=== PATIENT | male | born 1990 | race Caucasian/White ===

== ENCOUNTER 2016-07-12 21:44 | Emergency (ER) | payer BC ==
[~2016-07-12] VITALS: Ht 190.5 cm; Wt 77.1 kg
[2016-07-12] MEDS ORDERED: LORazepam Inj 2mg/ml 1ml IV ONE (22:45)
[2016-07-12] MEDS ORDERED: Tubing IV Cassette IV ONE (22:47)
[2016-07-13] VITALS: BP 135/85
--- NOTE | 2016-07-13 00:21 | Emergency Room Report ---
History of Present Illness General Chief Complaint: Substance Abuse Source: Patient, EMS Present Illness HPI Patient presents after adverse reaction from methamphetamine Patient reports that he used amphetamines in the afternoon he had done okay with this however he did a IV injection just prior to arrival He felt that the powder did not look right And soon after ingestion he had a reaction of tingling and numbness in his lower extremity Patient fell palpitations At this time denies any chest pain denies any vomiting or diarrhea denies any fevers or chills Allergies: Coded Allergies: CODEINE (Verified Allergy, Unknown, 07/12/16) ZOLMITRIPTAN (Unverified Allergy, Unknown, 07/12/16) Patient History Past Medical History: see triage record Pertinent Family History: none Reviewed Nursing Documentation: PMH: Agreed, PSxH: Agreed Nursing Documentation-PMH Past Medical History: No History, Except For Hx Cardiac Problems: Yes - Heart mumur with leaky valve, HIV+ Hx Asthma: Yes Review of Systems All Other Systems: negative except mentioned in HPI Physical Exam Vital Signs Date Time Temp Pulse Resp B/P Pulse Ox O2 Delivery O2 Flow Rate FiO2 07/12/16 21:40 98.2 132 14 134/85 98 Room Air Sp02 EP Interpretation: reviewed, normal General Appearance: well appearing, no apparent distress Head: normocephalic, atraumatic Eyes: bilateral eye EOMI, bilateral eye PERRL ENT: hearing grossly normal, normal pharynx, TMs + canals normal, uvula midline Neck: full range of motion, supple, no meningismus, no bony tend Respiratory: lungs clear, normal breath sounds, no rhonchi, no respiratory distress, no retraction, no accessory muscle use Cardiovascular #1: normal peripheral pulses, no edema, no gallop, no JVD, no murmur, tachycardia Gastrointestinal: normal bowel sounds, non tender, soft, no mass, no organomegaly, non-distended, no guarding, no hernia, no pulsatile mass, no rebound Genitourinary: no CVA tenderness Musculoskeletal: normal inspection Neurologic: oriented x3, responsive, 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 Results EP Interpretation: yes Rate: 110 Rhythm: no PVC's, no ectopy, other - Sinus tach Last Vital Signs Date Time Temp Pulse Resp B/P Pulse Ox O2 Delivery O2 Flow Rate FiO2 07/12/16 21:40 98.2 132 14 134/85 98 Room Air Status: improved Disposition: HOME, SELF-CARE Condition: Improved Additional Instructions: Patient is provided with the discharge instructions notified to follow up with primary doctor in the next 2-3 days otherwise return to the er with any worsening symptoms. Please note that this report is being documented using [employer] technology. This can lead to erroneous entry secondary to incorrect interpretation by the dictating instrument. ALYSSA LEON D.O. Jul 13, 2016 00:21
[2016-07-13 01:34] VITALS: BP 121/74
[2016-07-13 02:43] VITALS: BP 127/84
[2016-07-13 03:02] LABS: BASOPHILS % (AUTO) 0.6 % (0.0-2.0); EOSINOPHILS % (AUTO) 0.3 % (0.0-3.0); LYMPHOCYTES % (AUTO) 23.4 % (20.0-45.0); MEAN CORPUSCULAR HEMOGLOBIN 30.9 PG (27.0-31.0); MEAN CORPUSCULAR HGB CONC 33.4 G/DL (32.0-36.0); MEAN CORPUSCULAR VOLUME 92 FL (80-99); MEAN PLATELET VOLUME 6.6 FL (6.5-10.1); MONOCYTES % (AUTO) 8.9 % (1.0-10.0); NEUTROPHILS % (AUTO) 66.9 % (45.0-75.0); PLATELET COUNT 191 K/UL (150-450); RED BLOOD COUNT 4.41 M/UL (4.70-6.10); WHITE BLOOD COUNT 9.1 K/UL (4.8-10.8)
[2016-07-14] MEDS ORDERED: GENVOYA TABLET1 EACH PO (18:14)
[2016-07-14] MEDS ORDERED: VIBRAMYCIN100 MG ORAL (18:14)
[2016-07-14] MEDS ORDERED: IBUPROFEN600 MG ORAL (19:00)
--- NOTE | 2016-07-15 10:32 | Cardiology Report ---
APPROVED REPORT EKG Measurement Heart [id number] Sinus tachycardia Possible Left atrial enlargement Borderline ECG
== END 2016-07-13 02:45 | disposition home or self-care (01) ==
LOC: EDBD 21:44 → EMR 22:00
DX: F15.10 Other stimulant abuse, uncomplicated (principal); Z88.6 Allergy status to analgesic agent; Z88.8 Allergy status to other drugs, medicaments and biological substances; J45.909 Unspecified asthma, uncomplicated
CPT/HCPCS: 36415; 85025; 93005; 96360; 96361; 96374

== ENCOUNTER 2016-07-14 17:30 | Emergency (ER) | payer BC ==
[~2016-07-14] VITALS: Ht 190.5 cm; Wt 77.1 kg
[2016-07-14 18:02] VITALS: BP 128/81
[2016-07-14] MEDS ORDERED: VIBRAMYCIN100 MG ORAL (18:14)
[2016-07-14] MEDS ORDERED: GENVOYA TABLET1 EACH PO (18:14)
[2016-07-14] MEDS ORDERED: IBUPROFEN600 MG ORAL (19:00)
[2016-07-14 19:30] VITALS: BP 127/79
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
== END 2016-07-14 19:34 | disposition home or self-care (01) ==
LOC: EMR 18:15
DX: S00.83XA Contusion of other part of head, initial encounter (principal); Y04.2XXA Assault by strike against or bumped into by another person, initial encounter; Y93.9 Activity, unspecified; Y99.9 Unspecified external cause status; F15.10 Other stimulant abuse, uncomplicated; Z88.5 Allergy status to narcotic agent; Z88.1 Allergy status to other antibiotic agents
CPT/HCPCS: 70450; 70486; 80300; 99284